=== PATIENT | female | born 1955 | race Caucasian/White ===

== ENCOUNTER 2018-08-04 14:39 | Emergency (ER) | payer BC ==
[~2018-08-04] VITALS: Ht 172.7 cm; Wt 104.5 kg
[2018-08-04 14:45] VITALS: BP 128/70; TEMP 97.9
[2018-08-04] MEDS ORDERED: CRUTCHES MC (17:24)
[2018-08-04] MEDS ORDERED: NORCO 325 MG-51 TAB PO (17:44)
[2018-08-04 18:19] VITALS: PULSE 60
== END 2018-08-04 18:20 | disposition home or self-care (01) ==
LOC: COL.ER 14:39
DX: S82.842A Displaced bimalleolar fracture of left lower leg, initial encounter for closed fracture (principal); S82.852A Displaced trimalleolar fracture of left lower leg, initial encounter for closed fracture; W00.0XXA Fall on same level due to ice and snow, initial encounter; Y92.009 Unspecified place in unspecified non-institutional (private) residence as the place of occurrence of the external cause
CPT/HCPCS: Q4045